=== PATIENT | female | born 1970 | race Caucasian/White ===

== ENCOUNTER 2018-05-03 15:04 | Emergency (ER) | payer MEDICARE, BC ==
[2018-05-03 15:15] VITALS: TEMP 98.3
[2018-05-03] MEDS ORDERED: SODIUM CHLORIDE 0.9% 1,000 ML IV STA (15:30)
--- NOTE | 2018-05-03 16:00 | ED ---
Extremity Problem HPI - General Chief complaint: Extremity Problem,Nontraumatic Stated complaint: poss blood clot Time Seen by Provider: 05/03/18 15:20 Source: patient, RN notes reviewed, old records reviewed Mode of arrival: ambulatory Limitations: no limitations - History of Present Illness Initial comments: This is a 47-year-old female to the ER for evaluation. This patient presents for evaluation regards to lower extremity edema right lower extremity edema occasional chest pain exertional shortness of breath. Patient has no recent surgical history was sent ER by evaluation from her junior systems engineer regarding possible DVT. Patient currently denies any chest pain, denies any shortness of breath. No prior history of DVT, no recent surgeries travel history or known issues. MD Complaint: extremity pain, extremity swelling (Right lower) -: days(s) Location: right, lower extremity History of Same: No -: Yes associated dyspnea, Yes associated chest pain (Shortness of breath) Radiation: none Severity scale (1-10): 3 Quality: aching Consistency: constant Improves with: nothing Worsens with: walking, exertion Associated Symptoms: shortness of breath - Related Data Home Medications Medication Instructions Recorded Confirmed Meclizine HCl 12.5 mg PO DAILY PRN 05/03/18 05/03/18 Naproxen 500 mg PO DAILY 05/03/18 05/03/18 Omeprazole 20 mg PO DAILY 05/03/18 05/03/18 metFORMIN HCL [Glucophage] 500 mg PO DAILY 05/03/18 05/03/18 Allergies Allergy/AdvReac Type Severity Reaction Status Date / Time Tetracyclines Allergy Rash/Hives Verified 05/03/18 15:58 Review of Systems ROS Statement: Those systems with pertinent positive or pertinent negative responses have been documented in the HPI. ROS Other: All systems not noted in ROS Statement are negative. Past Medical History Past Medical History: Diabetes Mellitus, GERD/Reflux Additional Past Medical History / Comment(s): vertigo History of Any Multi-Drug Resistant Organisms: None Reported Past Surgical History: Orthopedic Surgery Past Psychological History: No Psychological Hx Reported Smoking Status: Never smoker Past Alcohol Use History: Occasional Past Drug Use History: None Reported General Exam Limitations: no limitations General appearance: alert, in no apparent distress Head exam: Present: atraumatic, normocephalic, normal inspection Eye exam: Present: normal appearance, PERRL, EOMI. Absent: scleral icterus, conjunctival injection, periorbital swelling ENT exam: Present: normal exam, mucous membranes moist Neck exam: Present: normal inspection. Absent: tenderness, meningismus, lymphadenopathy Respiratory exam: Present: normal lung sounds bilaterally. Absent: respiratory distress, wheezes, rales, rhonchi, stridor Cardiovascular Exam: Present: regular rate, normal rhythm, normal heart sounds. Absent: systolic murmur, diastolic murmur, rubs, gallop, clicks GI/Abdominal exam: Present: soft, normal bowel sounds. Absent: distended, tenderness, guarding, rebound, rigid Extremities exam: Present: normal inspection, full ROM, normal capillary refill. Absent: tenderness, pedal edema, joint swelling, calf tenderness Back exam: Present: normal inspection Neurological exam: Present: alert, oriented X3, CN II-XII intact Psychiatric exam: Present: normal affect, normal mood Skin exam: Present: warm, dry, intact, normal color. Absent: rash Course Vital Signs 05/03/18 05/03/18 15:12 16:26 Temperature 98.3 F Pulse Rate 80 68 Respiratory 20 16 Rate Blood Pressure 112/69 115/77 O2 Sat by Pulse 100 97 Oximetry Medical Decision Making - Lab Data Result diagrams: 05/03/18 15:30 05/03/18 15:30 Lab Results 05/03/18 05/03/18 05/03/18 Range/Units 15:30 15:30 15:30 WBC 6.5 (3.8-10.6) k/uL RBC 4.58 (3.80-5.40) m/uL Hgb 13.0 (11.4-16.0) gm/dL Hct 40.3 (34.0-46.0) % MCV 88.0 (80.0-100.0) fL MCH 28.4 (25.0-35.0) pg MCHC 32.3 (31.0-37.0) g/dL RDW 14.1 (11.5-15.5) % Plt Count 255 (150-450) k/uL Neutrophils % 57 % Lymphocytes % 31 % Monocytes % 6 % Eosinophils % 4 % Basophils % 0 % Neutrophils # 3.7 (1.3-7.7) k/uL Lymphocytes # 2.0 (1.0-4.8) k/uL Monocytes # 0.4 (0-1.0) k/uL Eosinophils # 0.2 (0-0.7) k/uL Basophils # 0.0 (0-0.2) k/uL PT (9.0-12.0) sec INR (<1.2) APTT (22.0-30.0) sec Sodium 138 (137-145) mmol/L Potassium 4.2 (3.5-5.1) mmol/L Chloride 104 (98-107) mmol/L Carbon Dioxide 24 (22-30) mmol/L Anion Gap 10 mmol/L BUN 11 (7-17) mg/dL Creatinine 0.79 (0.52-1.04) mg/dL Est GFR (CKD-EPI)AfAm >90 (>60 ml/min/1.73 sqM) Est GFR (CKD-EPI)NonAf 90 (>60 ml/min/1.73 sqM) Glucose 113 H (74-99) mg/dL Calcium 10.2 (8.4-10.2) mg/dL Phosphorus 4.1 (2.5-4.5) mg/dL Magnesium 1.8 (1.6-2.3) mg/dL Total Bilirubin 0.5 (0.2-1.3) mg/dL AST 30 (14-36) U/L ALT 31 (9-52) U/L Alkaline Phosphatase 94 (38-126) U/L Total Creatine Kinase 49 (30-135) U/L CK-MB (CK-2) 0.6 (0.0-2.4) ng/mL CK-MB (CK-2) Rel Index 1.2 Troponin I <0.012 (0.000-0.034) ng/mL Total Protein 7.8 (6.3-8.2) g/dL Albumin 4.5 (3.5-5.0) g/dL Urine Color Urine Appearance (Clear) Urine pH (5.0-8.0) Ur Specific [place] (1.001-1.035) Urine Protein (Negative) Urine Glucose (UA) (Negative) Urine Ketones (Negative) Urine Blood (Negative) Urine Nitrite (Negative) Urine Bilirubin (Negative) Urine Urobilinogen (<2.0) mg/dL Ur Leukocyte Esterase (Negative) 05/03/18 05/03/18 Range/Units 15:30 16:05 WBC (3.8-10.6) k/uL RBC (3.80-5.40) m/uL Hgb (11.4-16.0) gm/dL Hct (34.0-46.0) % MCV (80.0-100.0) fL MCH (25.0-35.0) pg MCHC (31.0-37.0) g/dL RDW (11.5-15.5) % Plt Count (150-450) k/uL Neutrophils % % Lymphocytes % % Monocytes % % Eosinophils % % Basophils % % Neutrophils # (1.3-7.7) k/uL Lymphocytes # (1.0-4.8) k/uL Monocytes # (0-1.0) k/uL Eosinophils # (0-0.7) k/uL Basophils # (0-0.2) k/uL PT 10.0 (9.0-12.0) sec INR 1.0 (<1.2) APTT 23.9 (22.0-30.0) sec Sodium (137-145) mmol/L Potassium (3.5-5.1) mmol/L Chloride (98-107) mmol/L Carbon Dioxide (22-30) mmol/L Anion Gap mmol/L BUN (7-17) mg/dL Creatinine (0.52-1.04) mg/dL Est GFR (CKD-EPI)AfAm (>60 ml/min/1.73 sqM) Est GFR (CKD-EPI)NonAf (>60 ml/min/1.73 sqM) Glucose (74-99) mg/dL Calcium (8.4-10.2) mg/dL Phosphorus (2.5-4.5) mg/dL Magnesium (1.6-2.3) mg/dL Total Bilirubin (0.2-1.3) mg/dL AST (14-36) U/L ALT (9-52) U/L Alkaline Phosphatase (38-126) U/L Total Creatine Kinase (30-135) U/L CK-MB (CK-2) (0.0-2.4) ng/mL CK-MB (CK-2) Rel Index Troponin I (0.000-0.034) ng/mL Total Protein (6.3-8.2) g/dL Albumin (3.5-5.0) g/dL Urine Color Colorless Urine Appearance Clear (Clear) Urine pH 6.0 (5.0-8.0) Ur Specific [place] 1.002 (1.001-1.035) Urine Protein Negative (Negative) Urine Glucose (UA) Negative (Negative) Urine Ketones Negative (Negative) Urine Blood Negative (Negative) Urine Nitrite Negative (Negative) Urine Bilirubin Negative (Negative) Urine Urobilinogen <2.0 (<2.0) mg/dL Ur Leukocyte Esterase Negative (Negative) - EKG Data -: EKG Interpreted by Me (EKG shows normal sinus rhythm rate of 75, WI 1:30, QRS 78, QTC 344) EKG shows normal: sinus rhythm Rate: normal Disposition Clinical Impression: Right leg pain Disposition: HOME SELF-CARE Condition: Good Instructions: Leg Pain (ED) Is patient prescribed a controlled substance at d/c from ED?: No Referrals: Tung Salazar DPM [Primary Care Provider] - 1-2 days
[2018-05-03 16:27] VITALS: RESP 16
[2018-05-03 16:31] LABS: Basophils % (A) 0 %; Eosinophils # (A) 0.2 k/uL (0-0.7); Eosinophils % (A) 4 %; HCT 40.3 % (34.0-46.0); Lymphocytes % (A) 31 %; MCH 28.4 pg (25.0-35.0); MCHC 32.3 g/dL (31.0-37.0); Mean Platelet Volume 6.4; Monocytes # (A) 0.4 k/uL (0-1.0); Monocytes % (A) 6 %; Neutrophils # (A) 3.7 k/uL (1.3-7.7); Neutrophils % (A) 57 %; Platelet Count 255 k/uL (150-450); RBC 4.58 m/uL (3.80-5.40); RDW 14.1 % (11.5-15.5); WBC 6.5 k/uL (3.8-10.6)
[2018-05-03 16:34] LABS: Appearance,Urine Clear (Clear); Bilirubin,Urine Negative (Negative); Blood,Urine Negative (Negative); Color,Urine Colorless; Glucose,Urine (UA) Negative (Negative); Ketones,Urine Negative (Negative); Leukocyte Esterase,Urine Negative (Negative); Nitrite,Urine Negative (Negative); Protein,Urine Negative (Negative); Specific Gravity,Urine 1.002 (1.001-1.035); Urobilinogen,Urine <2.0 mg/dL (<2.0)
[2018-05-03 16:39] LABS: Partial Thromboplastin Time 23.9 sec (22.0-30.0)
[2018-05-03 16:42] LABS: ALT 31 U/L (9-52); AST 30 U/L (14-36); Albumin 4.5 g/dL (3.5-5.0); Alkaline Phosphatase 94 U/L (38-126); Anion Gap 10 mmol/L; Blood Urea Nitrogen 11 mg/dL (7-17); Calcium 10.2 mg/dL (8.4-10.2); Carbon Dioxide 24 mmol/L (22-30); Chloride 104 mmol/L (98-107); Glucose 113 mg/dL (74-99); Magnesium 1.8 mg/dL (1.6-2.3); Phosphorus 4.1 mg/dL (2.5-4.5); Potassium 4.2 mmol/L (3.5-5.1); Sodium 138 mmol/L (137-145); Total Bilirubin 0.5 mg/dL (0.2-1.3); Total Protein 7.8 g/dL (6.3-8.2)
--- NOTE | 2018-05-03 16:43 | US ---
EXAMINATION TYPE: US venous doppler duplex LE RT DATE OF EXAM: 05/03/2018 3:31 PM COMPARISON: NONE CLINICAL HISTORY: Pain. SIDE PERFORMED: Right TECHNIQUE: The lower extremity deep venous system is examined utilizing real time linear array sonog yael with graded compression, doppler sonography and color-flow sonography. VESSELS IMAGED: External Iliac Vein (EIV) Common Femoral Vein Deep Femoral Vein Greater Saphenous Vein * Femoral Vein Popliteal Vein Small Saphenous Vein * Proximal Calf Veins (* superficial vessels) Right Leg: Negative for DVT IMPRESSION: Normal exam. No evidence of deep venous thrombosis in the right leg.
[2018-05-03 16:57] LABS: Creatine Kinase 49 U/L (30-135)
[2018-05-03 17:11] LABS: Creatine Kinase MB 0.6 ng/mL (0.0-2.4); Troponin I <0.012 ng/mL (0.000-0.034)
--- NOTE | 2018-05-03 18:17 | CT ---
EXAMINATION TYPE: CT angio chest DATE OF EXAM: 05/03/2018 5:50 PM COMPARISON: None HISTORY: CT DLP: mGycm Automated exposure control for dose reduction was used. CONTRAST: CTA scan of the thorax is performed , the contrast was Isovue 100 mL. There are 3-D post processed im ages. FINDINGS: There is slight coarsening of pulmonary interstitial markings. There is no evidence of a pulmonary ma ss. There is no pleural effusion. There is small hiatal hernia. There is normal heart size. I see no filling defects in the pulmonary arteries. There is enlarged 3 x 1.5 cm right bronchial lymp h node. There are multiple enlarged paratracheal lymph nodes that measure up to 2.5 cm. There are mul tiple anterior enlarged mediastinal lymph nodes up to 2.5 cm. There is no pericardial effusion. The b casper structures appear intact. IMPRESSION: NO EVIDENCE OF PULMONARY EMBOLISM. ENLARGED MEDIASTINAL AND RIGHT BRONCHIAL LYMPH NODES. FOLLOW-UP IS RECOMMENDED. THIS IS NONSPECIFIC A ND COULD RELATE TO SARCOIDOSIS. NO SIGNIFICANT LUNG DISEASE.
[2018-05-03 18:31] VITALS: BP 120/75; PULSE 69
== END 2018-05-03 18:35 | disposition home or self-care (01) ==
LOC: EC 15:04
DX: M79.604 Pain in right leg (principal); R60.0 Localized edema; R07.9 Chest pain, unspecified; R06.02 Shortness of breath; E11.9 Type 2 diabetes mellitus without complications; K21.9 Gastro-esophageal reflux disease without esophagitis; Z79.1 Long term (current) use of non-steroidal anti-inflammatories (NSAID); Z79.84 Long term (current) use of oral hypoglycemic drugs; Z79.899 Other long term (current) drug therapy; Z88.1 Allergy status to other antibiotic agents
CPT/HCPCS: 36415; 93005; 80053; 82550; 82553; 83735; 84100; 84484; 85025; 85610; 85730; 81003; 93971; 71275; 99284; 96360; Q9967

== ENCOUNTER → 2018-06-13 | Outpatient (CLI) | payer MEDICARE, BC ==
--- NOTE | 2018-06-13 09:32 | CT ---
EXAMINATION TYPE: CT ankle RT wo con DATE OF EXAM: 06/13/2018 COMPARISON: None HISTORY: 48-year-old female right ankle pain, Primary osteoarthritis, right ankle TECHNIQUE: Contiguous axial scanning of the right ankle without IV contrast. Coronal and sagittal rec onstructions performed. 3-D reconstructions generated on a dedicated independent workstation. CT DLP: 210.70 mGycm Automated exposure control for dose reduction was used. FINDINGS: There is evidence of prior subtalar fusion. Screw tracks from prior hardware are present within the c alcaneus and talus. Satisfactory ankylosis across the posterior subtalar joint and in the region of t he sinus Tarsi. Some portions of the anterior and peripheral middle subtalar joints remain unfused. T iny posterior and plantar calcaneal spurs. Bony spurring extending partially around the flexor hallucis longus along the posterior aspect of the talus. No acute fracture, subluxation, or dislocation. Talar dome is intact and the ankle mortise appears co ngruent. Tiny corticated ossific density anterior and posterior to the distal fibula suggesting seque la of remote injuries. IMPRESSION: POSTSURGICAL SUBTALAR JOINT ARTHRODESIS. TRACTS ARE PRESENT FROM PRIOR HARDWARE. THERE IS MATURE BONY BRIDGING INVOLVING THE POSTERIOR SUBTALAR JOINT AND REGIONS IN THE SINUS TARSI. PORTIONS OF THE ANTE RIOR AND MIDDLE SUBTALAR JOINT SHOW BONY FUSION WELL.
== END | disposition home or self-care (01) ==
LOC: RADCTMAIN 08:02
PROVIDERS: ATTEND Podiatrist Foot & Ankle Surgery
DX: M19.071 Primary osteoarthritis, right ankle and foot (principal); M77.51 Other enthesopathy of right foot and ankle; M25.571 Pain in right ankle and joints of right foot; Z98.1 Arthrodesis status

== ENCOUNTER → 2020-04-20 | Outpatient (CLI) | payer BC, MEDICARE ==
--- NOTE | 2020-04-20 08:04 | CT ---
EXAMINATION TYPE: CT soft tissue neck wo con DATE OF EXAM: 04/20/2020 COMPARISON: None HISTORY: Neck mass CT DLP: 513.[address] of the neck was performed from the skull base through the lung apices. The lack of cont rast does limit evaluation. AIRWAY: The supraglottic, glottic, and subglottic portions of the airway appear patent and free of mass. SALIVARY GLANDS: The submandibular and parotid glands are free of mass or inflammatory process. THYROID GLAND: No nodules or masses seen. LYMPH NODES: There is a large lymph node mass identified within the left supraclavicular region measu ring approximately 4.8 x 3.0 cm. There is additional adenopathy noted measuring up to 2.3 cm on the l eft and 2.0 cm on the right. There is also partially imaged mediastinal adenopathy measuring up to th e 1.7 cm and 1.8 cm prevascular space. Partially imaged groundglass infiltrate right upper lobe. The remainder of the lung apices are clear. LUNG APICES: No nodule or mass is seen. OTHER: Vascular structures are patent. No significant degenerative change of the cervical spine. N o abscess seen. IMPRESSION: 1. Supraclavicular adenopathy as well as a partially imaged adenopathy within the superior portion of the mediastinum. 2. Nodular groundglass infiltrate right upper lobe also partially imaged. CT of the chest is recommen ded. Correlate for possible lymphoma.
== END | disposition home or self-care (01) ==
LOC: RADCTMAIN 07:00
PROVIDERS: ATTEND Family Medicine
DX: R59.0 Localized enlarged lymph nodes (principal)
CPT/HCPCS: 70490

== ENCOUNTER → 2020-04-30 | Outpatient (CLI) | payer BC, MEDICARE ==
--- NOTE | 2020-04-30 08:50 | CT ---
EXAMINATION TYPE: CT chest wo con DATE OF EXAM: 04/30/2020 COMPARISON: 05/03/2018 HISTORY: 49-year-old female Localized enlarged lymph nodes TECHNIQUE: Contiguous axial scanning of the chest without IV contrast. Coronal and sagittal reconstru ctions performed. CT DLP: 489.5 mGycm Automated exposure control for dose reduction was used. FINDINGS: Heart normal size without pericardial effusion. Aorta normal caliber with bovine configuration to the aortic arch. Mediastinal lymphadenopathy is present throughout the [place] stations measuring up to 1.7 cm lower rig ht paratracheal, 1.7 cm right hilar, 1.7 cm subcarinal, 1.9 cm AP window. 2.9 cm lymph node medial left supraclavicular region and 2.0 cm lymph node more superiorly along the left supraclavicular region. While some enlarged lymph nodes were present back on 2018, findings have significantly progressed from prior exam though some of the lymph nodes seen at that time suggested in the right paratracheal region have decreased in size currently measuring 1.1 cm versus 2.0 cm, pre viously. New right suprahilar groundglass focus measures 1.9 cm. Some mild interstitial thickening in the righ t upper lobe nonspecific. 5 mm posterior right lower lobe pulmonary nodule, axial image 41 is unchanged and benign. Additionally 8 mm posterior right basilar pulmonary nodule, axial image 53 is unchanged and benign. Scattered strandy areas of atelectasis are demonstrated. Visualized upper abdomen shows cholecystectomy clips. Bones: No osseous destructive process. IMPRESSION: 1. PROGRESSIVE SUPRACLAVICULAR, MEDIASTINAL, AND RIGHT HILAR LYMPHADENOPATHY COMPARED TO 2018, GLORIA SURING UP TO 2.9 CM IN THE MEDIAL LEFT SUPRACLAVICULAR REGION AND 1.9 CM IN THE AP WINDOW. WE DO NOTE THAT WHILE THERE HAS BEEN OVERALL PROGRESSION, SOME OF THE ENLARGED LYMPH NODES PRESENT IN 2018 ARE NOW SMALLER. CORRELATE FOR ANY KNOWN DIAGNOSIS. LYMPHOMA AND SARCOIDOSIS ARE IN THE DIFFERENTIAL. BIO PSY WOULD BE HELPFUL IF NO KNOWN DIAGNOSIS. 2. NEW 1.9 CM GROUNDGLASS FOCUS IN THE RIGHT SUPRAHILAR REGION. NONSPECIFIC AREA OF PNEUMONITIS OR PU LMONARY LYMPHOMA ARE IN THE DIFFERENTIAL.
== END | disposition home or self-care (01) ==
LOC: RADCTMAIN 07:01
PROVIDERS: ATTEND Family Medicine
DX: R59.0 Localized enlarged lymph nodes (principal); R91.8 Other nonspecific abnormal finding of lung field; Z88.1 Allergy status to other antibiotic agents
CPT/HCPCS: 71250

== ENCOUNTER → 2020-05-19 | Outpatient (CLI) | payer BC, MEDICARE ==
[2020-05-20 03:09] LABS: African American GFR (CKD) 86.4 (60.0-200.0); Albumin 4.4 g/dL (3.80-4.90); Albumin/Globulin Ratio 1.76 (1.60-3.17); Anion Gap 10.9 mmol/L (4.00-12.00); BUN/Creat Ratio 17.78 Ratio (12.00-20.00); C Reactive Protein, High Sens 5.66 mg/L (0.000-3.000); Calcium 9.6 mg/dL (8.7-10.3); Carbon Dioxide 25.1 mmol/L (21.6-31.8); Globulin 2.5 g/dL (1.6-3.3); Non-African American GFR(CKD) 74.6 (60.0-200.0); Potassium 4.8 mmol/L (3.5-5.5); Total Bilirubin 0.2 mg/dL (0.3-1.2); Total Protein 6.9 g/dL (6.2-8.2)
== END | disposition home or self-care (01) ==
LOC: LABWHC1 14:51
PROVIDERS: ATTEND Internal Medicine Critical Care Medicine
DX: D86.9 Sarcoidosis, unspecified (principal)
CPT/HCPCS: 36415; 80053; 82164; 85652; 86141

== ENCOUNTER → 2020-05-22 | Outpatient (CLI) | payer BC, MEDICARE ==
--- NOTE | 2020-05-22 16:47 | PE ---
Nuclear medicine PET/CT HISTORY: Lung nodule, initial R 91.1 Patient received 11.1 mCi F-18 FDG intravenously in delayed scanning was performed from the skull bas e to the mid thighs. Localization and attenuation correction CT scan was performed. Correlation to chest CT dated 04/30/2020, CT soft tissue neck 04/20/2020 Chest and neck: Abnormal uptake present in the supraclavicular regions bilaterally, along the anterio r cervical chain on the left, there is associated adenopathy. Superior mediastinum shows adenopathy a nd associated hypermetabolic uptake, bilateral hilar uptake in the right hilar mass, subcarinal uptak e and adenopathy, there is retrocaval pretracheal adenopathy and uptake. Lung nodules show no definit e uptake show subcentimeter size. There is no pleural or pericardial effusion. ABDOMEN: No suspicious uptake within the liver. Adrenal glands show no mass. Patient is post cholecys tectomy. There is retroperitoneal adenopathy present between the aorta and inferior vena cava with as sociated uptake on axial image 158. There is no ascites. Uptake within the bowel is likely physiologi c. Osseous structures show no suspicious uptake. Impression: Adenopathy as described with associated hypermetabolic uptake, right upper lobe lung mass centrally.
== END | disposition home or self-care (01) ==
LOC: RADPETMAIN 13:06
PROVIDERS: ATTEND Internal Medicine Critical Care Medicine
DX: R91.8 Other nonspecific abnormal finding of lung field (principal)
CPT/HCPCS: 78815; A9552

== ENCOUNTER 2020-05-25 12:20 | Day surgery (SDC) | payer BC, MEDICARE ==
[2020-05-25 12:58] VITALS: RESP 18
[2020-05-25 13:48] VITALS: BP 116/76; PULSE 62
--- NOTE | 2020-05-25 15:21 | US ---
EXAMINATION TYPE: US biopsy lymph node, US FNA first lesion DATE OF EXAM: 05/25/2020 HISTORY: Left supraclavicular adenopathy. FINDINGS: Maximal barrier technique was utilized. Hand hygiene achieved with soap and water and alco hol-based hand rub. The skin overlying a suitable path to the patient's mass in left supraclavicular location was localized with ultrasound and the overlying skin prepped and draped. Ultrasound was uti lized with sterile technique. Lidocaine was used for local anesthesia. 3 passes with a 25-gauge nee dle were made under ultrasound guidance into the adenopathy. A skin yobani was made with a scalpel. An 18-gauge needle was advanced under direct ultrasound guidance and core specimen obtained of the mass . 3 core specimens were obtained. Specimens submitted to Pathology. Following the procedure, hemost asis achieved and the patient is discharged in stable condition without complication. IMPRESSION:STATUS POST ULTRASOUND GUIDED CORE BIOPSY and fine-needle aspiration biopsy OF left suprac lavicular MASS, PATHOLOGY IS PENDING. THIS PROCEDURE IS PERFORMED BY THE UNDERSIGNED.
== END 2020-05-25 14:05 | disposition home or self-care (01) ==
LOC: RADPROMAIN 12:20
PROVIDERS: ATTEND Internal Medicine Critical Care Medicine
DX: R59.0 Localized enlarged lymph nodes (principal)
CPT/HCPCS: 10005; 38505; 76942; 88173; 88305; 88341; 88342

== ENCOUNTER → 2020-06-12 | Outpatient (CLI) | payer BC, MEDICARE ==
--- NOTE | 2020-06-12 13:46 | ECHOF ---
Referral Reason:Z01.818 Pre chemo Exposure MEASUREMENTS -------- HEIGHT: 172.7 cm WEIGHT: 95.3 kg BP: IVSd: 1.2 cm (0.6 - 1.1) LVIDd: 3.9 cm (3.9 - 5.3) LVPWd: 1.3 cm (0.6 - 1.1) EDV(Teich): 66 ml IVSs: 1.5 cm LVIDs: 2.0 cm LVPWs: 1.6 cm %IVS Thck: 24 % ESV(Teich): 13 ml EF(Teich): 81 % %FS: 49 % SV(Teich): 54 ml RVIDd: 2.3 cm (< 3.3) IVC: 14.32 mm LALs A4C: 5.0 cm LAAs A4C: 14.7 cm LAESV A-L A4C: 36 ml LAESV MOD A4C: 35 ml LALs A2C: 5.2 cm LAAs A2C: 15.9 cm LAESV A-L A2C: 41 ml LAESV MOD A2C: 39 ml LAESV(A-L): 39 ml LAESV Index (A-L): 18.82 ml/m Ao Diam: 2.2 cm (2.0 - 3.7) LA Diam: 3.6 cm (2.7 - 3.8) AV Cusp: 1.5 cm (1.5 - 2.6) EPSS: 0.5 cm MV E Tony: 1.19 m/s MV DecT: 218 ms MV Dec Mifflin: 5.5 m/s MV A Tony: 0.76 m/s MV E/A Ratio: 1.58 MV PHT: 63 ms AV Vmax: 1.69 m/s AV maxP.41 mmHg AR Vmax: 2.16 m/s AR maxP.72 mmHg AR PHT: 958 ms AR Dec Time: 3304 ms AR Dec [place]if[place]: 0.7 m/s TR Vmax: 2.34 m/s TR maxP.87 mmHg RAP: 5.00 mmHg RVSP: 26.87 mmHg MV EF SLOPE: 169.26 mm/s (70 - 150) MV EXCURSION: 18.05 mm (> 18.000) FINDINGS -------- Sinus rhythm. This was a technically good study. The left ventricular size is normal. There is mild concentric left ventricular hypertrophy. Overa ll left ventricular systolic function is normal with, an EF between 55 - 60 %. The diastolic fillin g pattern is normal for the age of the patient 13.80. The right ventricle is normal in size. Normal LA size by volume 22+/-6 ml/m2. The right atrial size is normal. The aortic valve is trileaflet, and appears structurally normal. No aortic stenosis or regurgitation. The mitral valve is normal. There is trace mitral regurgitation. The tricuspid valve appears structurally normal. Trace tricuspid regurgitation present. Right yaniv tricular systolic pressure is normal at < 35 mmHg. There is no pulmonic regurgitation present. The aortic root size is normal. Normal inferior vena cava with normal inspiratory collapse consistent with estimated right atrial pre ssure of 5 mmHg. There is no pericardial effusion. CONCLUSIONS -------- 1. There is mild concentric left ventricular hypertrophy. 2. Overall left ventricular systolic function is normal with, an EF between 55 - 60 %. 3. The diastolic filling pattern is normal for the age of the patient 13.80 4. Normal LA size by volume 22+/-6 ml/m2. 5. The aortic valve is trileaflet, and appears structurally normal. No aortic stenosis or regurgitati on. 6. There is trace mitral regurgitation. 7. Trace tricuspid regurgitation present. 8. There is no pericardial effusion. STOVE FITTER: Jenn Richardson RDCS
== END | disposition home or self-care (01) ==
LOC: RADECHMAIN 10:21
PROVIDERS: ATTEND Internal Medicine Hematology & Oncology
DX: Z01.818 Encounter for other preprocedural examination (principal); I51.7 Cardiomegaly; Z88.1 Allergy status to other antibiotic agents
CPT/HCPCS: 93306

== ENCOUNTER → 2020-12-12 | Outpatient (CLI) | payer BC, MEDICARE ==
--- NOTE | 2020-12-14 09:00 | PE ---
Nuclear medicine PET/CT HISTORY: C 81.78, lymphoma, subsequent, neck and chest Patient received 12.4 mCi F-18 FDG intravenously in delayed scanning was performed from skull base to the mid thighs. Localization and attenuation correction CT scan was performed. Correlation to prior nuclear medicine PET/CT 08/10/2020 from outside institution, CT chest 04/30/2020 Chest and neck: There is no suspicious uptake. No evident cervical or supraclavicular adenopathy. The re is a port in the right pectoral region coursing via a subclavian approach the tip in the right atr ium. There is no axillary, mediastinal, or hilar adenopathy, shotty nodes are present, prevascular no becky are present without significant uptake. There is a right lower lobe smoothly marginated lung nodu le, axial image #126 with central calcification which is stable and may represent granuloma, no pleur al or pericardial effusion. ABDOMEN: There is no retroperitoneal adenopathy. Patient is post cholecystectomy. No suspicious uptak e. No ascites. Osseous structures show no suspicious uptake. IMPRESSION: Stable exam. No significant interval change. No suspicious uptake.
== END | disposition home or self-care (01) ==
LOC: RADPETMAIN 08:04
PROVIDERS: ATTEND Internal Medicine Hematology & Oncology
DX: C85.90 Non-Hodgkin lymphoma, unspecified, unspecified site (principal)
CPT/HCPCS: 78815; A9552

== ENCOUNTER → 2021-06-08 | Outpatient (CLI) | payer BC, MEDICARE ==
--- NOTE | 2021-06-14 12:08 | MM ---
Reason for exam: screening (asymptomatic). Last mammogram was performed 4 years and 3 months ago. History: Patient is postmenopausal, history of other cancer, and had first child at age 35. Took hormonal contraceptives for 12 years. Physical Findings: A clinical breast exam by your physician is recommended on an annual basis and results should be correlated with mammographic findings. MG 3D Screening Mammo W/Cad Bilateral CC and MLO view(s) were taken. Prior study comparison: February 27, 2017, mammogram, performed at [facility]. March 16, 2015, mammogram, performed at [facility]. The breast tissue is heterogeneously dense. This may lower the sensitivity of mammography. Stable bilateral asymmetric densities. No significant changes when compared with prior studies. ASSESSMENT: Benign, BI-RAD 2 RECOMMENDATION: Routine screening mammogram of both breasts in 1 year.
== END | disposition home or self-care (01) ==
LOC: RADMAMWWP 16:03
PROVIDERS: ATTEND Family Medicine
DX: Z12.31 Encounter for screening mammogram for malignant neoplasm of breast (principal); Z78.0 Asymptomatic menopausal state
CPT/HCPCS: 77063; 77067

== ENCOUNTER → 2021-06-18 | Outpatient (CLI) | payer BC, MEDICARE ==
--- NOTE | 2021-06-18 13:24 | CT ---
EXAMINATION TYPE: CT ChestAbdPelvis w con DATE OF EXAM: 06/18/2021 INDICATION: Hodgkins Lymphoma COMPARISON: PET scan 12/12/2020 CT DLP: 1482.1 mGycm CONTRAST: Performed without Oral Contrast and with IV Contrast, patient injected with 100 mL of Isovue 300. TECHNIQUE: Axial images at 5 mm thick sections. Reconstructed images in the coronal plane. Delayed images through the kidneys. FINDINGS: CT CHEST: Portion of the thyroid visualized is normal. No suspicious lung nodules or focal infiltrates are present. No enlarged mediastinal or hilar adenopathy is evident. The ascending aorta diameter at the level of the main pulmonary artery is 2.8 cm. The main pulmonary artery diameter at the bifurcation is 2.[address] ABDOMEN: Liver: Normal Spleen: Normal Pancreas: Normal Adrenal glands: The adrenal glands are normal. Gallbladder: Surgically absent Kidneys: No masses are evident. No hydronephrosis is present. Very tiny cortical renal cysts on the left kidney. No additional cysts are evident. Delayed images were obtained through the kidneys, whi ch remain unremarkable. Aorta: Normal Inferior vena cava: Normal. CT PELVIS: Loops of bowel within the abdomen and pelvis are normal. This study is for oral contrast limiting bowel evaluation. Appendix: Normal as visualized. Urinary bladder: Normal. Genitourinary structures: Uterus and adnexa are normal Osseous structures: No suspicious lytic or sclerotic lesions. Lymphadenopathy: No enlarged lymphadenopathy is evident within the chest abdomen and pelvis. Axillary regions and pretracheal and hilar regions. Aortic and retrocaval areas and iliac chain, obturator ca nal, and inguinal regions are negative for enlarged lymphadenopathy. IMPRESSIONS: 1. No suspicious change suggest recurrent lymphoma.
== END | disposition home or self-care (01) ==
LOC: RADCTMAIN 07:52
PROVIDERS: ATTEND Internal Medicine Hematology & Oncology
DX: C81.98 Hodgkin lymphoma, unspecified, lymph nodes of multiple sites (principal)
CPT/HCPCS: 71260; 74177; Q9967

== ENCOUNTER → 2021-12-14 | Outpatient (CLI) | payer BC, MEDICARE ==
--- NOTE | 2021-12-14 15:52 | CT ---
EXAMINATION TYPE: CT ChestAbdPelvis wo con DATE OF EXAM: 12/14/2021 COMPARISON: Recent CT June 18, 2021 and older studies. HISTORY: obs for mets. hx of hodgkins lymphoma. CT DLP: 1264.70 mGycm. Automated Exposure Control for Dose Reduction was Utilized. TECHNIQUE: CT scan of the thorax, abdomen and pelvis is performed without oral or IV contrast. FINDINGS: LUNGS: The lungs remain grossly clear, there is no concerning parenchymal mass or nodule identified. There is no pleural effusion or pneumothorax seen. The tracheobronchial tree is patent. MEDIASTINUM: There are no new or recurrent greater than 1 cm hilar or mediastinal lymph nodes. No c ardiomegaly or pericardial effusion is seen. LIVER/GB: Cholecystectomy clips are redemonstrated. PANCREAS: No significant abnormality is seen. SPLEEN: No significant abnormality is seen. ADRENALS: No significant abnormality is seen. KIDNEYS: No renal stones or hydronephrosis is seen bilaterally. BOWEL: Normal appearing appendix posteriorly from cecum. GENITAL ORGANS: Anteverted uterus is present. Scattered bilateral pelvic phleboliths. LYMPH NODES: No new greater than 1cm abdominal or pelvic lymph nodes are appreciated. OSSEOUS STRUCTURES: No significant abnormality is seen. OTHER: Stable tiny fat-containing umbilical hernia with nearby surgical clip. IMPRESSION: No suspicious new mass or adenopathy to suggest active lymphoma recurrence.
== END | disposition home or self-care (01) ==
LOC: RADCTMAIN 15:18
PROVIDERS: ATTEND Internal Medicine Hematology & Oncology
DX: Z85.71 Personal history of Hodgkin lymphoma (principal)
CPT/HCPCS: 71250; 74176

== ENCOUNTER → 2022-04-09 | Outpatient (CLI) | payer BC, MEDICARE ==
--- NOTE | 2022-04-11 09:24 | MR ---
EXAMINATION TYPE: MR knee LT wo con DATE OF EXAM: 04/09/2022 COMPARISON: None HISTORY: Knee pain TECHNIQUE: Multiplanar, multisequence imaging of the left knee is performed without IV contrast. FINDINGS: MEDIAL MENISCUS: Anterior and posterior horns are intact without tear. LATERAL MENISCUS: Anterior and posterior horns are intact without tear. CRUCIATE LIGAMENTS: Increased signal within the ACL is likely reflective of a chronic partial tear. N o evidence for full-thickness tear. PCL is intact. COLLATERAL LIGAMENTS: The medial collateral ligament and lateral collateral ligament complex are inta ct and unremarkable. EXTENSOR MECHANISM: Visualized quadriceps and patellar tendons are intact. EFFUSION: Lateral suprapatellar joint effusion with the 1.1 cm loose body noted. POPLITEAL CYST: No popliteal/quiñonez cyst. 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 Mild narrowing medial tibiofemoral joint space. BONE MARROW SIGNAL: No focal abnormal marrow signal is appreciated. OTHER: No additional significant abnormality is appreciated. IMPRESSION: 1.Increased signal within the ACL is likely reflective of a chronic partial tear. No evidence for ful l-thickness tear. 2.Lateral suprapatellar joint effusion with the 1.1 cm loose body noted. 3. Changes of osteoarthritis.
== END | disposition home or self-care (01) ==
LOC: RADMRIMAIN 11:50
PROVIDERS: ATTEND Family Medicine
DX: M17.12 Unilateral primary osteoarthritis, left knee (principal)

== ENCOUNTER → 2022-10-24 | Outpatient (CLI) | payer BC, MEDICARE ==
--- NOTE | 2022-10-24 22:17 | CT ---
EXAMINATION TYPE: CT ChestAbdPelvis wo con DATE OF EXAM: 10/24/2022 INDICATION: Lymphoma COMPARISON: 12/14/2021, PET/CT 12/12/2020. CT DLP: 1404.1 mGycm CONTRAST: Performed without Oral Contrast. No intravenous contrast. TECHNIQUE: Axial images at 5 mm thick secti ons. Reconstructed images in the coronal plane. Delayed images through the kidneys. FINDINGS: CT CHEST: Portion of the thyroid visualized is normal. There is a 1.0 cm nodule in the posterior right lung base. This has a central calcification suggestiv e for granuloma. Series 4 image 46. Punctate nodule is in the posterior right midlung. Series 4 image 33. No enlarged mediastinal or hilar adenopathy is evident. The ascending aorta diameter at the level of the main pulmonary artery is 3.1 cm. The main pulmonary artery diameter at the bifurcation is 2.[address] ABDOMEN: Liver: Normal Spleen: Normal Pancreas: Normal Adrenal glands: The adrenal glands are normal. Gallbladder: Surgically absent. Kidneys: No masses are evident. No hydronephrosis is present. No cysts are present. No renal stone s are evident. Aorta: Normal Inferior vena cava: Normal. CT PELVIS: Loops of bowel within the abdomen and pelvis are normal. The study is performed without oral cont rast limits evaluation. Appendix: Normal as visualized. Urinary bladder: Decompressed with limited evaluation Genitourinary structures: Uterus is unremarkable. Adnexa are clear. Osseous structures: No suspicious lytic or sclerotic lesions. Lymphadenopathy: Scattered small inguinal lymph nodes are present. No suspicious iliac chain or obtur ator canal lymphadenopathy is evident. No retrocaval or periaortic adenopathy. No retrocrural adenopa thy. No suspicious enlarged mediastinal adenopathy. Few scattered superior mediastinal lymph nodes IMPRESSIONS: 1. Stable right lung nodules. 2. CT abdomen and pelvis appears unremarkable. 3. No suspicious changes to suggest recurrent or metastatic lymphoma.
== END | disposition home or self-care (01) ==
LOC: RADCTMAIN 12:22
PROVIDERS: ATTEND Internal Medicine Hematology & Oncology
DX: C81.98 Hodgkin lymphoma, unspecified, lymph nodes of multiple sites (principal); R91.8 Other nonspecific abnormal finding of lung field; Z03.89 Encounter for observation for other suspected diseases and conditions ruled out
CPT/HCPCS: 71250; 74176

== ENCOUNTER → 2023-12-27 | Outpatient (CLI) | payer BC, MEDICARE ==
--- NOTE | 2023-12-27 20:01 | CT ---
EXAMINATION TYPE: CT ChestAbdPelvis w con DATE OF EXAM: 12/27/2023 COMPARISON: Prior CT October 24, 2022 and older studies. HISTORY: Hx of Hodgkin's Lymphoma. CT DLP: 1955 mGycm. Automated Exposure Control for Dose Reduction was Utilized. CONTRAST: CT scan of the thorax, abdomen and pelvis is performed without oral but with IV Contrast, patient inj ected with 100 mL of Isovue 300. FINDINGS: LUNGS: The lungs remain grossly clear, there is no concerning parenchymal mass or nodule identified. There is no pleural effusion or pneumothorax seen. The tracheobronchial tree is patent. MEDIASTINUM: There are no new or recurrent greater than 1 cm hilar or mediastinal lymph nodes. No c ardiomegaly or pericardial effusion is seen. Stable 8 mm calcified right lung base nodule or benign granuloma axial image 46. LIVER/GB: Cholecystectomy clips are redemonstrated. Liver is diffusely low dense consistent with diff use fatty infiltrative hepatocellular disease PANCREAS: No significant abnormality is seen. SPLEEN: No significant abnormality is seen. ADRENALS: No significant abnormality is seen. KIDNEYS: No renal stones or hydronephrosis is seen bilaterally. BOWEL: Normal appearing appendix posteriorly from cecum. GENITAL ORGANS: Anteverted uterus is present. Scattered bilateral pelvic phleboliths. LYMPH NODES: No new greater than 1cm abdominal or pelvic lymph nodes are appreciated. OSSEOUS STRUCTURES: No significant abnormality is seen. OTHER: Stable tiny fat-containing umbilical hernia on sagittal image 71 with adjacent right-sided emerald gical clip. IMPRESSION: No suspicious new mass or adenopathy to suggest active lymphoma recurrence. No significa nt change from most recent prior CT.
== END | disposition home or self-care (01) ==
LOC: RADCTMAIN 14:39
PROVIDERS: ATTEND Internal Medicine Hematology & Oncology
DX: C81.98 Hodgkin lymphoma, unspecified, lymph nodes of multiple sites (principal); Z71.3 Dietary counseling and surveillance
CPT/HCPCS: 71260; 74177; Q9967

== ENCOUNTER → 2024-02-08 | Outpatient (CLI) | payer BC, MEDICARE ==
--- NOTE | 2024-02-13 09:32 | MM ---
Reason for Exam: Screening (asymptomatic). Last mammogram was performed 2 year(s) and 8 month(s) ago. Patient History: Menarche at age 11. First Full-Term at age 35. Late child-bearing (after 29). Postmenopausal. Other cancer. Patient used Hormonal Contraceptives for 12 years. Risk Values: Opal 5 year model risk: 1.6%. NCI Lifetime model risk: 11.4%. Prior Study Comparison: 03/16/2015 Screening Mammogram, [facility]. 02/27/2017 Screening Mammogram, [facility]. 06/08/2021 Bilateral Screening Mammogram, [facility]. Tissue Density: The breasts are heterogeneously dense, which may obscure small masses. Findings: Analyzed By CAD. Right breast: There is no suspicious group of microcalcifications or new suspicious mass. Left breast: There is no suspicious group of microcalcifications or new suspicious mass. Overall Assessment: Negative, BI-RAD 1 Management: Screening Mammogram of both breasts in [address] [facility] will attempt to contact patient to return for supplemental views and ultrasound if indicated. Patient should continue monthly self-breast exams. A clinical breast exam by your physician is recommended on an annual basis. This exam should not preclude additional follow-up of suspicious palpable abnormalities. Note on Opal scores and lifetime risk: 1. A Opal score greater than 3% is considered moderate risk. If this is the case, consider specialist referral to assess eligibility for a risk reducing agent. 2. If overall lifetime risk for the development of breast cancer is 20% or higher, the patient may qualify for future screening with alternating mammogram and breast MRI. Electronically signed and approved by: Alex Gardner DO
== END | disposition home or self-care (01) ==
LOC: RADMAMWWP 15:30
PROVIDERS: ATTEND Family Medicine
DX: Z12.31 Encounter for screening mammogram for malignant neoplasm of breast (principal); R92.333 Mammographic heterogeneous density, bilateral breasts; Z78.0 Asymptomatic menopausal state
CPT/HCPCS: 77063; 77067